=== PATIENT | female | born 1975 | race Two or more races ===

== ENCOUNTER 2017-03-09 15:57 | Inpatient (IN) | payer OTHER ==
[2017-03-09] MEDS ORDERED: Sodium Chloride 0.9% 10 ML Syringe FLUSH PRN (16:33)
[2017-03-09] MEDS: Dextrose 5%-Lactated Ringers 1,000 ML IV SCH (16:33)
[2017-03-09] MEDS: Pantoprazole 40 MG Vial IVPUSH SCH (16:33)
--- NOTE | 2017-03-09 17:17 | PCM.HP ---
H&P History of Present Illness - General Date of Service: 03/09/17 Admit Problem/Dx: Admission Diagnosis/Problem Admission Diagnosis/Problem Anemia Source of Information: Patient History Limitations: Reports: No Limitations - History of Present Illness Initial Comments - Free Text/Narative: 41-year-old female admitted because of anemia. She was seen by Dr. Samayoa in the clinic with a low hemoglobin and admitted for upper GI endoscopy. She complains of chest pain started about 2 weeks 2 days ago that is left sided, with radiation to the neck.It is associated dizziness and shortness of breath. Is now constant and worse when shegets up from laying down.She states that she can reproduce it when she presses her chest muscles. She has no fever or chills, and no previous cardiac history.She has no h/o anxiety,or recent surgeries. She did complains of melena stools, but no vaginal bleeding, hemoptysis or other bleeding tendencies. She is previously healthy with exception of chronic back pain for which she is on chronic opiate therapy. She does not smoke or drink Headache Pain Score (Numeric/FACES): 5 - Related Data Allergies/Adverse Reactions: Allergies Allergy/AdvReac Type Severity Reaction Status Date / Time ciprofloxacin Allergy Rash Verified 03/09/17 17:01 morphine Allergy Nausea and Verified 03/09/17 17:01 Vomiting Home Medications: Home Meds fentaNYL [Duragesic] 25 mcg TD Q3D 02/24/16 [History] Metaxalone [Skelaxin] 800 mg PO TID 03/09/17 [History] Pregabalin [Lyrica] 150 mg PO BEDTIME 03/09/17 [History] Ranitidine [Zantac] 75 mg PO BEDTIME PRN 03/09/17 [History] Past Medical History HEENT History: Reports: Other (See Below) Other HEENT History: Right ear deaf 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: Other (See Below) Other OB/BYN History: Lumps removed from Breasts; benign - Infectious Disease History Infectious Disease History: Reports: Chicken Pox - Past Surgical History GI Surgical History: Reports: Cholecystectomy Social & Family History - Family History Family Medical History: Noncontributory - Tobacco Use Smoking Status *Q: Never Smoker Second Hand Smoke Exposure: No - Caffeine Use Caffeine Use: Reports: Coffee, Soda - Alcohol Use Days Per Week of Alcohol Use: 0 - Recreational Drug Use Recreational Drug Use: No H&P Review of Systems - Review of Systems: Review Of Systems: ROS reveals no pertinent complaints other than HPI. Exam - Exam Exam: See Below - Vital Signs Vital Signs: Last Vital Signs Temp 98.3 F 03/09/17 15:57 Pulse 72 03/09/17 15:57 Resp 18 03/09/17 15:57 BP 101/54 L 03/09/17 15:57 Pulse Ox 99 03/09/17 15:57 - Exam General: Alert, Oriented, 4 HEENT: PERRLA, Hearing Intact, Mucosa Moist & [place], Nares Patent, Normal Nasal Septum, Posterior Pharynx Clear, Conjunctiva Clear, EOMI, EACs Clear, TMs Clear Neck: Supple, Trachea Midline, 2 Lungs: Clear to Auscultation, Normal Respiratory Effort Cardiovascular: Regular Rate, Regular Rhythm GI/Abdominal Exam: Normal Bowel Sounds, Soft, Non-Tender, No Organomegaly, No Distention, No Abnormal Bruit, No Mass, Pelvis Stable (Female) Exam: Deferred Rectal (Female) Exam: Deferred Back Exam: Normal Inspection, Full Range of Motion, NT Extremities: Normal Inspection, Normal Range of Motion, Non-Tender, No Pedal Edema, Normal Capillary Refill Skin: Warm, Dry, Intact Neurological: Cranial Nerves Intact, Reflexes Equal Bilateral Neuro Extensive - Mental Status: Alert, Oriented x3, Normal Mood/Affect, Normal Cognition Neuro Extensive - Motor, Sensory, Reflexes: CN II-XII Intact, Normal Gait, Normal Reflexes Psychiatric: Alert, Normal Affect, Normal Mood - Patient Data Result Diagrams: 03/10/17 06:30 03/09/17 17:30 EKG INTERPRETATION Rhythm: NSR *Q Meaningful Use (ADM) - VTE *Q VTE Criteria *Q: - Stroke *Q Stroke Criteria *Q: - AMI *Q AMI Criteria *Q: - Problem List (1) Anemia SNOMED Code(s): 515128372 ICD Code: D64.9 - ANEMIA, UNSPECIFIED Status: Acute Current Visit: Yes (2) Upper GI bleed SNOMED Code(s): 15184680 ICD Code: K92.2 - GASTROINTESTINAL HEMORRHAGE, UNSPECIFIED Status: Acute Current Visit: Yes (3) Chest pain SNOMED Code(s): 70499347 ICD Code: R07.9 - CHEST PAIN, UNSPECIFIED Status: Acute Current Visit: No (4) Hypotension SNOMED Code(s): 80220627 ICD Code: I95.9 - HYPOTENSION, UNSPECIFIED Status: Acute Current Visit: Yes (5) Chronic pain syndrome SNOMED Code(s): 007341717 ICD Code: G89.4 - CHRONIC PAIN SYNDROME Status: Acute Current Visit: Yes Problem List Initiated/Reviewed/Updated: Yes Orders Last 24hrs: Active Orders 24 hr Category Date Time Status Patient Status [ADT] Routine ADT 03/09/17 16:07 Active Antiembolic Devices [RC] .Routine Care 03/09/17 16:12 Active Bedrest Bedside Commode [RC] ASDIRECTED Care 03/09/17 16:07 Active EKG Documentation Completion [RC] ASDIRECTED Care 03/09/17 17:14 Ordered Pulse Oximetry [RC] PRN Care 03/09/17 16:07 Active VTE/DVT Education [RC] Click to Edit Care 03/09/17 16:12 Active Vital Signs [RC] Q4H Care 03/09/17 16:07 Active Clear Liquid Diet [DIET] Diet 03/09/17 Dinner Active Nothing per Oral After Midnight Diet [DIET] Diet 03/09/17 Dinner Active Chest 1V Frontal [CR] Stat Exams 03/09/17 17:14 Ordered CBC WITH AUTO DIFF [HEME] Stat Lab 03/09/17 17:15 Ordered COMPREHENSIVE METABOLIC PN,CMP [CHEM] Routine Lab 03/09/17 17:15 Ordered D Dimer [D-DIMER QUANTITATIVE] [COAG] Routine Lab 03/09/17 17:14 Ordered HEMOGLOBIN [HEME] 0600 Lab 03/10/17 06:00 Ordered INR,PT,PROTHROMBIN TIME [COAG] Routine Lab 03/09/17 17:15 Ordered TROPONIN I [CHEM] Stat Lab 03/09/17 17:14 Ordered TYPE AND SCREEN [BBK] Routine Lab 03/09/17 17:16 Ordered Dextrose 5%-Lactated Ringers 1,000 ml Med 03/09/17 16:15 Active IV ASDIRECTED Pantoprazole [ProTONIX IV] Med 03/09/17 16:15 Active 40 mg IVPUSH Q12H Sodium Chloride 0.9% [Saline Flush] Med 03/09/17 16:33 Active 10 ml FLUSH ASDIRECTED PRN DVT/VTE Prophylaxis Reflex [OM.PC] Per Unit Routine Oth 03/09/17 16:07 Ordered Saline Lock Insert [OM.PC] Routine Oth 03/09/17 16:33 Ordered EKG 12 Lead [EK] Routine Ther 03/09/17 17:14 Ordered Medication Orders Dextrose/Lactated Ringer's (Dextrose 5%-Lactated Ringers) 1,000 mls @ 125 mls/ hr IV ASDIRECTED [facility] Last Admin: 03/09/17 16:33 Dose: 125 mls/hr Pantoprazole Sodium (Protonix Iv) 40 mg IVPUSH Q12H [facility] Last Admin: 03/09/17 16:33 Dose: 40 mg Sodium Chloride (Saline Flush) 10 ml FLUSH ASDIRECTED PRN PRN Reason: Keep Vein Open Assessment/Plan Comment:: This also chest pain is unclear, but differential diagnosis includes costochondritis, PE, particularly syndrome, and fibromyalgia. I called and spoke with cardiology at [facility], they recommended repeating cardiac enzymes and EKG serially. She has no previous history, or high risk factors for chronic disease. She will probably need a stress test at some point. I'll order for a repeat CBC, type and screen, and a basic metabolic panel. Also obtain a d- dimer. I'll do a bolus of normal saline given her low blood pressure, and continue with replacement maintenance fluids overnight. She is nothing by mouth past midnight for the upper GI tomorrow morning.
[2017-03-09] MEDS: Sodium Chloride 0.9% 1,000 ML IV SCH (17:25)
[2017-03-09] MEDS: Pregabalin 75 MG Cap PO SCH (20:46)
[2017-03-09] MEDS ORDERED: Famotidine 10 MG Tab PO PRN (21:00)
[2017-03-09] MEDS: Acetaminophen 325 MG Tab PO PRN (21:29)
[2017-03-10] MEDS: Dextrose 5%-Lactated Ringers 1,000 ML IV SCH ×3 (01:15→16:42)
[2017-03-10] MEDS: Sodium Chloride 0.9% 1,000 ML IV SCH (04:19)
[2017-03-10] MEDS: Pantoprazole 40 MG Vial IVPUSH SCH ×2 (04:35→15:17)
[2017-03-10] MEDS ORDERED: Sodium Chloride 0.9% 250 ML IV SCH (07:30)
[2017-03-10] MEDS ORDERED: Sodium Chloride 0.9% 500 ML IV ONE ×2 (08:50→09:25)
[2017-03-10] MEDS ORDERED: fentaNYL 25 MCG/HR Transdermal Patch TRDERM SCH (09:00)
--- NOTE | 2017-03-10 09:22 | PCM.PN ---
- General Info Date of Service: 03/10/17 Subjective Update: Overnight patient had low blood pressure, mostly in the 80s. Hemoglobin this morning was found to be 7.4. On-call physician started 2 units of PRBCs. She complains of chest tightness but denies any malcolm pain. She also compresses of dizziness, and a mild to moderate headache. All signs of anemia. She's had bright red blood per rectum times which introduced hemorrhoids. Stools are black. - Patient Data Vitals - Most Recent: Last Vital Signs Temp 98.5 F 03/10/17 09:05 Pulse 80 03/10/17 09:05 Resp 20 03/10/17 09:05 BP 84/48 L 03/10/17 09:05 Pulse Ox 100 03/10/17 09:05 Weight - Most Recent: 72.665 kg I&O - Last 24 Hours: Intake & Output 03/09/17 03/10/17 03/10/17 22:59 06:59 14:59 Intake Total 1544 1636 389 Output Total 750 Balance 1544 886 389 Lab Results Last 24 Hours: Laboratory Results - last 24 hr 03/09/17 03/09/17 03/09/17 Range/Units 17:30 17:30 17:30 WBC (4.5-12.0) X10-3/uL RBC (3.23-5.20) x10(6)uL Hgb (11.5-15.5) g/dL Hct (30.0-51.3) % MCV (80-96) fL MCH (27.7-33.6) pg MCHC (32.2-35.4) g/dL RDW (11.5-15.5) % Plt Count (125-369) X10(3)uL MPV (7.4-10.4) fL Neut % (Auto) (46-82) % Lymph % (Auto) (13-37) % [place] % (Auto) (4-12) % Eos % (Auto) (1.0-5.0) % Baso % (Auto) (0-2) % Neut # (Auto) (1.6-8.3) # Lymph # (Auto) (0.6-5.0) # [place] # (Auto) (0.0-1.3) # Eos # (Auto) (0.0-0.8) # Baso # (Auto) (0.0-0.2) # PT 10.9 (8.7-11.1) INR 1.08 (0.89-1.13) D-Dimer, Quantitative 117 (100-400) ng/mL Sodium (135-145) mmol/L Potassium (3.5-5.3) mmol/L Chloride (100-110) mmol/L Carbon Dioxide (23-29) mmol/L BUN (5-20) mg/dL Creatinine (0.6-1.3) mg/dL Est Cr Clr Drug Dosing mL/min Estimated GFR (MDRD) (>60) BUN/Creatinine Ratio (9-20) Glucose (80-116) mg/dL Calcium (8.6-10.2) mg/dL Total Bilirubin (0.1-1.3) mg/dL AST (5-27) IU/L ALT (14-26) IU/L Alkaline Phosphatase (56-112) IU/L Creatine Kinase (60-160) IU/L CK-MB (CK-2) (0.2-5.0) ng/mL Troponin I < 0.01 L (0.02-0.06) NG/ML Total Protein (6.0-8.0) g/dL Albumin (3.5-5.2) g/dL Globulin g/dL Albumin/Globulin Ratio Blood Type Gel Antibody Screen Crossmatch 03/09/17 03/09/17 03/09/17 Range/Units 17:30 17:30 17:30 WBC 10.9 (4.5-12.0) X10-3/uL RBC 3.14 L (3.23-5.20) x10(6)uL Hgb 9.0 L D (11.5-15.5) g/dL Hct 26.3 L D (30.0-51.3) % MCV 83.7 (80-96) fL MCH 28.5 (27.7-33.6) pg MCHC 34.1 (32.2-35.4) g/dL RDW 12.9 (11.5-15.5) % Plt Count 294 (125-369) X10(3)uL MPV 8.9 (7.4-10.4) fL Neut % (Auto) 68.9 (46-82) % Lymph % (Auto) 24.3 (13-37) % [place] % (Auto) 5.4 (4-12) % Eos % (Auto) 1 (1.0-5.0) % Baso % (Auto) 0 (0-2) % Neut # (Auto) 7.6 (1.6-8.3) # Lymph # (Auto) 2.6 (0.6-5.0) # [place] # (Auto) 0.6 (0.0-1.3) # Eos # (Auto) 0.1 (0.0-0.8) # Baso # (Auto) 0.0 (0.0-0.2) # PT (8.7-11.1) INR (0.89-1.13) D-Dimer, Quantitative (100-400) ng/mL Sodium 132 L (135-145) mmol/L Potassium 3.6 (3.5-5.3) mmol/L Chloride 106 (100-110) mmol/L Carbon Dioxide 22 L (23-29) mmol/L BUN 9 (5-20) mg/dL Creatinine 0.6 (0.6-1.3) mg/dL Est Cr Clr Drug Dosing 102.07 mL/min Estimated GFR (MDRD) > 60 (>60) BUN/Creatinine Ratio 15.0 (9-20) Glucose 99 (80-116) mg/dL Calcium 8.2 L (8.6-10.2) mg/dL Total Bilirubin 0.1 (0.1-1.3) mg/dL AST 14 D (5-27) IU/L ALT 9 L D (14-26) IU/L Alkaline Phosphatase 37 L (56-112) IU/L Creatine Kinase (60-160) IU/L CK-MB (CK-2) (0.2-5.0) ng/mL Troponin I (0.02-0.06) NG/ML Total Protein 6.5 (6.0-8.0) g/dL Albumin 3.7 (3.5-5.2) g/dL Globulin 2.8 g/dL Albumin/Globulin Ratio 1.3 Blood Type O POSITIVE Gel Antibody Screen Negative Crossmatch See Detail 03/09/17 03/10/17 Range/Units 17:30 06:30 WBC (4.5-12.0) X10-3/uL RBC (3.23-5.20) x10(6)uL Hgb 7.4 L (11.5-15.5) g/dL Hct (30.0-51.3) % MCV (80-96) fL MCH (27.7-33.6) pg MCHC (32.2-35.4) g/dL RDW (11.5-15.5) % Plt Count (125-369) X10(3)uL MPV (7.4-10.4) fL Neut % (Auto) (46-82) % Lymph % (Auto) (13-37) % [place] % (Auto) (4-12) % Eos % (Auto) (1.0-5.0) % Baso % (Auto) (0-2) % Neut # (Auto) (1.6-8.3) # Lymph # (Auto) (0.6-5.0) # [place] # (Auto) (0.0-1.3) # Eos # (Auto) (0.0-0.8) # Baso # (Auto) (0.0-0.2) # PT (8.7-11.1) INR (0.89-1.13) D-Dimer, Quantitative (100-400) ng/mL Sodium (135-145) mmol/L Potassium (3.5-5.3) mmol/L Chloride (100-110) mmol/L Carbon Dioxide (23-29) mmol/L BUN (5-20) mg/dL Creatinine (0.6-1.3) mg/dL Est Cr Clr Drug Dosing mL/min Estimated GFR (MDRD) (>60) BUN/Creatinine Ratio (9-20) Glucose (80-116) mg/dL Calcium (8.6-10.2) mg/dL Total Bilirubin (0.1-1.3) mg/dL AST (5-27) IU/L ALT (14-26) IU/L Alkaline Phosphatase (56-112) IU/L Creatine Kinase 62 (60-160) IU/L CK-MB (CK-2) 0.4 (0.2-5.0) ng/mL Troponin I (0.02-0.06) NG/ML Total Protein (6.0-8.0) g/dL Albumin (3.5-5.2) g/dL Globulin g/dL Albumin/Globulin Ratio Blood Type Gel Antibody Screen Crossmatch Med Orders - Current: Current Medications Acetaminophen (Tylenol) 650 mg PO Q4H PRN PRN Reason: Headache/Pain Last Admin: 03/09/17 21:29 Dose: 650 mg Famotidine (Pepcid) 10 mg PO BEDTIME PRN PRN Reason: HEARTBURN Fentanyl (Duragesic) 25 mcg TRDERM Q3D [facility] Last Admin: 03/10/17 08:11 Dose: 25 mcg Dextrose/Lactated Ringer's (Dextrose 5%-Lactated Ringers) 1,000 mls @ 125 mls/ hr IV ASDIRECTED [facility] Last Admin: 03/10/17 06:22 Dose: 125 mls/hr Sodium Chloride (Normal Saline) 1,000 mls @ 500 mls/hr IV ASDIRECTED [facility] Last Admin: 03/10/17 04:19 Dose: 999 mls/hr Sodium Chloride (Normal Saline) 250 mls @ 100 mls/hr IV ASDIRECTED [facility] Sodium Chloride (Normal Saline) 500 mls @ 125 mls/hr IV ONETIME ONE Stop: 03/10/17 12:49 Metaxalone (Skelaxin) 800 mg PO TID [facility] Last Admin: 03/10/17 08:12 Dose: Not Given Pantoprazole Sodium (Protonix Iv) 40 mg IVPUSH Q12H [facility] Last Admin: 03/10/17 04:35 Dose: 40 mg Pregabalin (Lyrica) 150 mg PO BEDTIME [facility] Last Admin: 03/09/17 20:46 Dose: 150 mg Sodium Chloride (Saline Flush) 10 ml FLUSH ASDIRECTED PRN PRN Reason: Keep Vein Open - Exam Quality Assessment: No: Supplemental Oxygen General: Alert, Oriented HEENT: Pupils Equal, Pupils Reactive, EOMI, Mucous Membr. Moist/[place] Neck: Supple Lungs: Clear to Auscultation, Normal Respiratory Effort Cardiovascular: Regular Rate, Regular Rhythm - Problem List & Annotations (1) Anemia SNOMED Code(s): 756137929 Code(s): D64.9 - ANEMIA, UNSPECIFIED Status: Acute Current Visit: Yes (2) Upper GI bleed SNOMED Code(s): 33715992 Code(s): K92.2 - GASTROINTESTINAL HEMORRHAGE, UNSPECIFIED Status: Acute Current Visit: Yes (3) Chest pain SNOMED Code(s): 01837786 Code(s): R07.9 - CHEST PAIN, UNSPECIFIED Status: Acute Current Visit: No (4) Hypotension SNOMED Code(s): 18288035 Code(s): I95.9 - HYPOTENSION, UNSPECIFIED Status: Acute Current Visit: Yes (5) Chronic pain syndrome SNOMED Code(s): 672483650 Code(s): G89.4 - CHRONIC PAIN SYNDROME Status: Acute Current Visit: Yes - Problem List Review Problem List Initiated/Reviewed/Updated: Yes - My Orders Last 24 Hours: My Active Orders 03/09/17 16:07 Patient Status [ADT] Routine Bedrest Bedside Commode [RC] ASDIRECTED Pulse Oximetry [RC] PRN Vital Signs [RC] Q4H DVT/VTE Prophylaxis Reflex [OM.PC] Per Unit Routine 03/09/17 16:12 Antiembolic Devices [RC] 08,16,00 03/09/17 16:15 Dextrose 5%-Lactated Ringers 1,000 ml IV ASDIRECTED Pantoprazole [ProTONIX IV] 40 mg IVPUSH Q12H 03/09/17 16:33 Sodium Chloride 0.9% [Saline Flush] 10 ml FLUSH ASDIRECTED PRN Saline Lock Insert [OM.PC] Routine 03/09/17 17:14 Chest 1V Frontal [CR] Stat EKG 12 Lead [EK] Routine 03/09/17 17:30 TYPE AND SCREEN [BBK] Routine 03/09/17 17:45 Sodium Chloride 0.9% [Normal Saline] 1,000 ml IV ASDIRECTED 03/09/17 21:00 Famotidine [Pepcid] 10 mg PO BEDTIME PRN Metaxalone [Skelaxin] 800 mg PO TID Pregabalin [Lyrica] 150 mg PO BEDTIME 03/09/17 21:19 Acetaminophen [Tylenol] 650 mg PO Q4H PRN 03/09/17 Dinner Clear Liquid Diet [DIET] Nothing per Oral After Midnight Diet [DIET] 03/10/17 08:50 Sodium Chloride 0.9% [Normal Saline] 500 ml IV ONETIME 03/10/17 09:00 fentaNYL [Duragesic] 25 mcg TRDERM Q3D 03/10/17 09:06 TROPONIN I [CHEM] Stat - Plan Plan:: I agree with 2 units of PRBCs. And Protonix. Her persistent hypotension and low hemoglobin could possibly be an active bleed, and she will need intervention. I spoke with Dr. Brooks ,who is planning for an EGD, from a cardiac standpoint she is low risk for dali-operative cardiac mobility, given her risk factors, age and lack of prior cardiopulmonary disease.Her cardiac enzymes also have been negative.
[2017-03-10] MEDS ORDERED: Midazolam 1 MG/ML 2 ML SDV IV ONE (09:55)
[2017-03-10] MEDS ORDERED: Ketamine 500 mg/10 ML MDV IV ONE (09:55)
[2017-03-10] MEDS ORDERED: Propofol 200 MG/20 ML SDV IV ONE (09:55)
[2017-03-10] MEDS ORDERED: Lidocaine 2% 100 MG/5 ML Syringe IVPUSH ONE (09:55)
--- NOTE | 2017-03-10 10:00 | PCM.PN ---
- General Info Date of Service: 03/10/17 - Review of Systems General: Reports: Weakness (improved with less dizzyness), Other (Feels better after blood transfusion started) Pulmonary: Reports: No Symptoms Cardiovascular: Denies: Chest Pain Gastrointestinal: Reports: Other (some gassiness but no stool during the night) . Denies: Abdominal Pain - Patient Data Vitals - Most Recent: Last Vital Signs Temp 98.1 F 03/10/17 09:45 Pulse 89 03/10/17 09:45 Resp 16 03/10/17 09:45 BP 90/45 L 03/10/17 09:45 Pulse Ox 100 03/10/17 09:45 Weight - Most Recent: 160 lb 3.2 oz I&O - Last 24 Hours: Intake & Output 03/09/17 03/10/17 03/10/17 22:59 06:59 14:59 Intake Total 1544 1636 389 Output Total 750 Balance 1544 886 389 Lab Results Last 24 Hours: Laboratory Results - last 24 hr 03/09/17 03/09/17 03/09/17 Range/Units 17:30 17:30 17:30 WBC (4.5-12.0) X10-3/uL RBC (3.23-5.20) x10(6)uL Hgb (11.5-15.5) g/dL Hct (30.0-51.3) % MCV (80-96) fL MCH (27.7-33.6) pg MCHC (32.2-35.4) g/dL RDW (11.5-15.5) % Plt Count (125-369) X10(3)uL MPV (7.4-10.4) fL Neut % (Auto) (46-82) % Lymph % (Auto) (13-37) % [place] % (Auto) (4-12) % Eos % (Auto) (1.0-5.0) % Baso % (Auto) (0-2) % Neut # (Auto) (1.6-8.3) # Lymph # (Auto) (0.6-5.0) # [place] # (Auto) (0.0-1.3) # Eos # (Auto) (0.0-0.8) # Baso # (Auto) (0.0-0.2) # PT 10.9 (8.7-11.1) INR 1.08 (0.89-1.13) D-Dimer, Quantitative 117 (100-400) ng/mL Sodium (135-145) mmol/L Potassium (3.5-5.3) mmol/L Chloride (100-110) mmol/L Carbon Dioxide (23-29) mmol/L BUN (5-20) mg/dL Creatinine (0.6-1.3) mg/dL Est Cr Clr Drug Dosing mL/min Estimated GFR (MDRD) (>60) BUN/Creatinine Ratio (9-20) Glucose (80-116) mg/dL Calcium (8.6-10.2) mg/dL Total Bilirubin (0.1-1.3) mg/dL AST (5-27) IU/L ALT (14-26) IU/L Alkaline Phosphatase (56-112) IU/L Creatine Kinase (60-160) IU/L CK-MB (CK-2) (0.2-5.0) ng/mL Troponin I < 0.01 L (0.02-0.06) NG/ML Total Protein (6.0-8.0) g/dL Albumin (3.5-5.2) g/dL Globulin g/dL Albumin/Globulin Ratio Blood Type Gel Antibody Screen Crossmatch 03/09/17 03/09/17 03/09/17 Range/Units 17:30 17:30 17:30 WBC 10.9 (4.5-12.0) X10-3/uL RBC 3.14 L (3.23-5.20) x10(6)uL Hgb 9.0 L D (11.5-15.5) g/dL Hct 26.3 L D (30.0-51.3) % MCV 83.7 (80-96) fL MCH 28.5 (27.7-33.6) pg MCHC 34.1 (32.2-35.4) g/dL RDW 12.9 (11.5-15.5) % Plt Count 294 (125-369) X10(3)uL MPV 8.9 (7.4-10.4) fL Neut % (Auto) 68.9 (46-82) % Lymph % (Auto) 24.3 (13-37) % [place] % (Auto) 5.4 (4-12) % Eos % (Auto) 1 (1.0-5.0) % Baso % (Auto) 0 (0-2) % Neut # (Auto) 7.6 (1.6-8.3) # Lymph # (Auto) 2.6 (0.6-5.0) # [place] # (Auto) 0.6 (0.0-1.3) # Eos # (Auto) 0.1 (0.0-0.8) # Baso # (Auto) 0.0 (0.0-0.2) # PT (8.7-11.1) INR (0.89-1.13) D-Dimer, Quantitative (100-400) ng/mL Sodium 132 L (135-145) mmol/L Potassium 3.6 (3.5-5.3) mmol/L Chloride 106 (100-110) mmol/L Carbon Dioxide 22 L (23-29) mmol/L BUN 9 (5-20) mg/dL Creatinine 0.6 (0.6-1.3) mg/dL Est Cr Clr Drug Dosing 102.07 mL/min Estimated GFR (MDRD) > 60 (>60) BUN/Creatinine Ratio 15.0 (9-20) Glucose 99 (80-116) mg/dL Calcium 8.2 L (8.6-10.2) mg/dL Total Bilirubin 0.1 (0.1-1.3) mg/dL AST 14 D (5-27) IU/L ALT 9 L D (14-26) IU/L Alkaline Phosphatase 37 L (56-112) IU/L Creatine Kinase (60-160) IU/L CK-MB (CK-2) (0.2-5.0) ng/mL Troponin I (0.02-0.06) NG/ML Total Protein 6.5 (6.0-8.0) g/dL Albumin 3.7 (3.5-5.2) g/dL Globulin 2.8 g/dL Albumin/Globulin Ratio 1.3 Blood Type O POSITIVE Gel Antibody Screen Negative Crossmatch See Detail 03/09/17 03/10/17 Range/Units 17:30 06:30 WBC (4.5-12.0) X10-3/uL RBC (3.23-5.20) x10(6)uL Hgb 7.4 L (11.5-15.5) g/dL Hct (30.0-51.3) % MCV (80-96) fL MCH (27.7-33.6) pg MCHC (32.2-35.4) g/dL RDW (11.5-15.5) % Plt Count (125-369) X10(3)uL MPV (7.4-10.4) fL Neut % (Auto) (46-82) % Lymph % (Auto) (13-37) % [place] % (Auto) (4-12) % Eos % (Auto) (1.0-5.0) % Baso % (Auto) (0-2) % Neut # (Auto) (1.6-8.3) # Lymph # (Auto) (0.6-5.0) # [place] # (Auto) (0.0-1.3) # Eos # (Auto) (0.0-0.8) # Baso # (Auto) (0.0-0.2) # PT (8.7-11.1) INR (0.89-1.13) D-Dimer, Quantitative (100-400) ng/mL Sodium (135-145) mmol/L Potassium (3.5-5.3) mmol/L Chloride (100-110) mmol/L Carbon Dioxide (23-29) mmol/L BUN (5-20) mg/dL Creatinine (0.6-1.3) mg/dL Est Cr Clr Drug Dosing mL/min Estimated GFR (MDRD) (>60) BUN/Creatinine Ratio (9-20) Glucose (80-116) mg/dL Calcium (8.6-10.2) mg/dL Total Bilirubin (0.1-1.3) mg/dL AST (5-27) IU/L ALT (14-26) IU/L Alkaline Phosphatase (56-112) IU/L Creatine Kinase 62 (60-160) IU/L CK-MB (CK-2) 0.4 (0.2-5.0) ng/mL Troponin I (0.02-0.06) NG/ML Total Protein (6.0-8.0) g/dL Albumin (3.5-5.2) g/dL Globulin g/dL Albumin/Globulin Ratio Blood Type Gel Antibody Screen Crossmatch Med Orders - Current: Current Medications Acetaminophen (Tylenol) 650 mg PO Q4H PRN PRN Reason: Headache/Pain Last Admin: 03/09/17 21:29 Dose: 650 mg Famotidine (Pepcid) 10 mg PO BEDTIME PRN PRN Reason: HEARTBURN Fentanyl (Duragesic) 25 mcg TRDERM Q3D [facility] Last Admin: 03/10/17 08:11 Dose: 25 mcg Dextrose/Lactated Ringer's (Dextrose 5%-Lactated Ringers) 1,000 mls @ 125 mls/ hr IV ASDIRECTED [facility] Last Admin: 03/10/17 06:22 Dose: 125 mls/hr Sodium Chloride (Normal Saline) 1,000 mls @ 500 mls/hr IV ASDIRECTED [facility] Last Admin: 03/10/17 04:19 Dose: 999 mls/hr Sodium Chloride (Normal Saline) 250 mls @ 100 mls/hr IV ASDIRECTED [facility] Sodium Chloride (Normal Saline) 500 mls @ 125 mls/hr IV ONETIME ONE Stop: 03/10/17 12:49 Last Admin: 03/10/17 08:50 Dose: 125 mls/hr Sodium Chloride (Normal Saline) 500 mls @ 125 mls/hr IV ONETIME ONE Stop: 03/10/17 13:24 Metaxalone (Skelaxin) 800 mg PO TID [facility] Last Admin: 03/10/17 08:12 Dose: Not Given Pantoprazole Sodium (Protonix Iv) 40 mg IVPUSH Q12H [facility] Last Admin: 03/10/17 04:35 Dose: 40 mg Pregabalin (Lyrica) 150 mg PO BEDTIME [facility] Last Admin: 03/09/17 20:46 Dose: 150 mg Sodium Chloride (Saline Flush) 10 ml FLUSH ASDIRECTED PRN PRN Reason: Keep Vein Open - Exam General: Alert, Oriented Cardiovascular: Regular Rhythm GI/Abdominal Exam: Soft - Problem List Review Problem List Initiated/Reviewed/Updated: Yes - Assessment Assessment:: GI bleed with acute anemia Cardiac w/u indicates no acute cardiac damage Symptoms felt to have been caused by acute blood loss Condition stabilizing - Plan Plan:: Recieving 2 units PRBC's Cardiac evaluation noted and appreciated EGD this AM This has been discussed with the patient. She agrees to proceed accepting risks.
--- NOTE | 2017-03-10 10:30 | PCM.OPNOTE ---
- General Post-Op/Procedure Note Date of Surgery/Procedure: 03/10/17 Operative Procedure(s): EGD with Biopsy Findings: Raised Gastic Mucosal Lesion - Ulcer lower gastric body - no active bleeding Pre Op Diagnosis: GI bleed with anemia Post-Op Diagnosis: Gastric Ulcer Anesthesia Technique: MAC Primary Surgeon: Fred Brooks Pathology: Biopsies of Gastric Antrum Output, Urine Amount: 0 EBL in mLs: 2 Complications: None Condition: Good Free Text/Narrative:: Intake & Output 03/09/17 03/10/17 03/10/17 22:59 06:59 14:59 Intake Total 1544 1636 389 Output Total 750 Balance 1544 886 389
--- NOTE | 2017-03-10 12:21 | OR ---
DATE OF OPERATION: 03/10/2017 SURGEON: Fred Brooks MD REFERRING PROVIDER: Gee Pierson PA-C PREOPERATIVE DIAGNOSIS: Acute upper gastrointestinal bleed with anemia. POSTOPERATIVE DIAGNOSIS: Gastric ulcer. OPERATION PERFORMED: Esophagogastroduodenoscopy with biopsy. INDICATIONS FOR SURGERY: This 41-year-old female was admitted with significant anemia, felt to be most likely secondary to an upper GI bleed. Diagnostic upper endoscopy is planned. FINDINGS: No active bleeding or blood is seen in the esophagus, stomach, or duodenum. The patient does have an isolated lesion on the posterior mucosal surface of the stomach in the lower gastric body. This was a raised ulcerative lesion approximately 7-8 mm in size. There is no active bleeding noted at this time, although this is felt to be a likely source for her recent bleeding. The remainder of the upper endoscopy was normal. PROCEDURE IN DETAIL: The patient was taken to the procedure room. She was given intravenous sedation and with her in the left lateral decubitus position, the esophagus was intubated under direct visualization. The scope was then carefully advanced through the esophagus, stomach, and into the duodenum where examination to the 3rd portion was performed. After carefully examining the duodenum and finding no evidence of any bleeding or ulcer, full examination of the stomach including retroflexed examination of the fundus was performed. The only abnormality was the above-described lesion. Because of the significant amount of bleeding, biopsy of the lesion itself was not taken to limit chance of recurrence of bleeding, but biopsies of the gastric antrum were taken to rule out H. pylori. After fully examining the stomach, the esophagus was then examined as the scope was withdrawn. The scope was removed and the patient was taken from the procedure room in satisfactory condition. ESTIMATED BLOOD LOSS: 2 mL. COMPLICATIONS: None. PROGNOSIS: Good. /[id number] ANGELA/FADUMO
[2017-03-10] MEDS: Acetaminophen 325 MG Tab PO PRN (13:14)
[2017-03-10] MEDS: Pregabalin 75 MG Cap PO SCH (20:53)
[2017-03-11] MEDS: Dextrose 5%-Lactated Ringers 1,000 ML IV SCH (00:47)
[2017-03-11] MEDS: Pantoprazole 40 MG Vial IVPUSH SCH (04:20)
[2017-03-11] MEDS: Acetaminophen 325 MG Tab PO PRN (06:04)
--- NOTE | 2017-03-11 08:03 | PCM.PN ---
- General Info Date of Service: 03/11/17 Admission Dx/Problem (Free Text): Patient states she had a headache this morning and was given Tylenol and that helped. She had a little abdominal pain after she ate last night but much better. She has little BM but is still dark. No nausea or vomiting. No fevers or chills. - Patient Data Vitals - Most Recent: Last Vital Signs Temp 98.3 F 03/11/17 04:00 Pulse 70 03/11/17 04:00 Resp 16 03/11/17 04:00 BP 90/47 L 03/11/17 04:00 Pulse Ox 99 03/11/17 04:00 Weight - Most Recent: 160 lb 3.2 oz I&O - Last 24 Hours: Intake & Output 03/10/17 03/11/17 03/11/17 22:59 06:59 14:59 Intake Total 1212 1186 Output Total 1300 600 Balance -88 586 Lab Results Last 24 Hours: Laboratory Results - last 24 hr 03/09/17 03/10/17 03/10/17 Range/Units 17:30 06:30 16:00 WBC (4.5-12.0) X10-3/uL RBC (3.23-5.20) x10(6)uL Hgb 10.2 L (11.5-15.5) g/dL Hct (30.0-51.3) % MCV (80-96) fL MCH (27.7-33.6) pg MCHC (32.2-35.4) g/dL RDW (11.5-15.5) % Plt Count (125-369) X10(3)uL MPV (7.4-10.4) fL Neut % (Auto) (46-82) % Lymph % (Auto) (13-37) % [place] % (Auto) (4-12) % Eos % (Auto) (1.0-5.0) % Baso % (Auto) (0-2) % Neut # (Auto) (1.6-8.3) # Lymph # (Auto) (0.6-5.0) # [place] # (Auto) (0.0-1.3) # Eos # (Auto) (0.0-0.8) # Baso # (Auto) (0.0-0.2) # Sodium (135-145) mmol/L Potassium (3.5-5.3) mmol/L Chloride (100-110) mmol/L Carbon Dioxide (23-29) mmol/L BUN (5-20) mg/dL Creatinine (0.6-1.3) mg/dL Est Cr Clr Drug Dosing mL/min Estimated GFR (MDRD) (>60) BUN/Creatinine Ratio (9-20) Glucose (80-116) mg/dL Calcium (8.6-10.2) mg/dL Troponin I < 0.01 L (0.02-0.06) NG/ML Blood Type O POSITIVE Gel Antibody Screen Negative Crossmatch See Detail 03/11/17 03/11/17 Range/Units 06:00 06:00 WBC 8.2 (4.5-12.0) X10-3/uL RBC 3.25 (3.23-5.20) x10(6)uL Hgb 9.4 L (11.5-15.5) g/dL Hct 27.0 L (30.0-51.3) % MCV 83.1 (80-96) fL MCH 28.9 (27.7-33.6) pg MCHC 34.7 (32.2-35.4) g/dL RDW 13.5 (11.5-15.5) % Plt Count 234 (125-369) X10(3)uL MPV 8.2 (7.4-10.4) fL Neut % (Auto) 64.6 (46-82) % Lymph % (Auto) 25.6 (13-37) % [place] % (Auto) 6.4 (4-12) % Eos % (Auto) 3 (1.0-5.0) % Baso % (Auto) 1 (0-2) % Neut # (Auto) 5.3 (1.6-8.3) # Lymph # (Auto) 2.1 (0.6-5.0) # [place] # (Auto) 0.5 (0.0-1.3) # Eos # (Auto) 0.2 (0.0-0.8) # Baso # (Auto) 0.1 (0.0-0.2) # Sodium 136 (135-145) mmol/L Potassium 3.6 (3.5-5.3) mmol/L Chloride 109 (100-110) mmol/L Carbon Dioxide 22 L (23-29) mmol/L BUN 3 L (5-20) mg/dL Creatinine 0.6 (0.6-1.3) mg/dL Est Cr Clr Drug Dosing 102.07 mL/min Estimated GFR (MDRD) > 60 (>60) BUN/Creatinine Ratio 5.0 L (9-20) Glucose 103 (80-116) mg/dL Calcium 7.9 L (8.6-10.2) mg/dL Troponin I (0.02-0.06) NG/ML Blood Type Gel Antibody Screen Crossmatch Med Orders - Current: Current Medications Acetaminophen (Tylenol) 650 mg PO Q4H PRN PRN Reason: Headache/Pain Last Admin: 03/11/17 06:04 Dose: 650 mg Famotidine (Pepcid) 10 mg PO BEDTIME PRN PRN Reason: HEARTBURN Fentanyl (Duragesic) 25 mcg TRDERM Q3D [facility] Last Admin: 03/10/17 08:11 Dose: 25 mcg Dextrose/Lactated Ringer's (Dextrose 5%-Lactated Ringers) 1,000 mls @ 125 mls/ hr IV ASDIRECTED [facility] Last Admin: 03/11/17 00:47 Dose: 125 mls/hr Sodium Chloride (Normal Saline) 1,000 mls @ 500 mls/hr IV ASDIRECTED [facility] Last Admin: 03/10/17 04:19 Dose: 999 mls/hr Sodium Chloride (Normal Saline) 250 mls @ 100 mls/hr IV ASDIRECTED [facility] Metaxalone (Skelaxin) 800 mg PO TID [facility] Last Admin: 03/10/17 20:54 Dose: 800 mg Pantoprazole Sodium (Protonix Iv) 40 mg IVPUSH Q12H [facility] Last Admin: 03/11/17 04:20 Dose: 40 mg Pregabalin (Lyrica) 150 mg PO BEDTIME [facility] Last Admin: 03/10/17 20:53 Dose: 150 mg Sodium Chloride (Saline Flush) 10 ml FLUSH ASDIRECTED PRN PRN Reason: Keep Vein Open Last Admin: 03/10/17 15:19 Dose: 10 ml Discontinued Medications Sodium Chloride (Normal Saline) 500 mls @ 125 mls/hr IV ONETIME ONE Stop: 03/10/17 12:49 Last Admin: 03/10/17 08:50 Dose: 125 mls/hr Sodium Chloride (Normal Saline) 500 mls @ 125 mls/hr IV ONETIME ONE Stop: 03/10/17 13:24 Last Admin: 03/10/17 09:27 Dose: 125 mls/hr - Exam General: Alert, Oriented, Cooperative Lungs: Normal Respiratory Effort Cardiovascular: Regular Rate, Regular Rhythm GI/Abdominal Exam: Normal Bowel Sounds, Soft, No Distention, Tender (Mild epigastric). No: Guarding, Rigid, Rebound - Problem List & Annotations (1) Gastric ulcer SNOMED Code(s): 834913364 Code(s): K25.9 - GASTRIC ULCER, UNSP ACUTE OR CHRONIC, W/O HEMOR OR PERF Status: Acute Current Visit: Yes (2) Chest pain SNOMED Code(s): 22719523 Code(s): R07.9 - CHEST PAIN, UNSPECIFIED Status: Acute Current Visit: Yes (3) Acute hyponatremia SNOMED Code(s): 7124533 Code(s): E87.1 - HYPO-OSMOLALITY AND HYPONATREMIA Status: Acute Current Visit: Yes (4) Anemia SNOMED Code(s): 984412186 Code(s): D64.9 - ANEMIA, UNSPECIFIED Status: Acute Current Visit: Yes (5) Chronic pain syndrome SNOMED Code(s): 174587085 Code(s): G89.4 - CHRONIC PAIN SYNDROME Status: Acute Current Visit: Yes (6) Upper GI bleed SNOMED Code(s): 27391083 Code(s): K92.2 - GASTROINTESTINAL HEMORRHAGE, UNSPECIFIED Status: Acute Current Visit: Yes - Problem List Review Problem List Initiated/Reviewed/Updated: Yes - Plan Plan:: 1. DC IV fluids 2. Saline lock IV. 3. Discussed hemoglobin with Dr. Schuster. He states he will be in to see the patient and possibly discharge her today.
--- NOTE | 2017-03-11 08:37 | CR ---
INDICATION: Chest pain. CHEST: Portable AP upright view of the chest was obtained 03/09/2017 and compared with 05/28/2014, revealing the heart to remain normal in size and shape. An active infiltrate or effusion was not identified. Overlying EKG leads are noted. IMPRESSION: No acute process. MTDD
--- NOTE | 2017-03-11 09:06 | PCM.PN ---
- General Info Date of Service: 03/11/17 Admission Dx/Problem (Free Text): Patient states she had a headache this morning and was given Tylenol and that helped. She had a little abdominal pain after she ate last night but much better. She has little BM but is still dark. No nausea or vomiting. No fevers or chills. Functional Status: Reports: Other (Pain much better today then before - still mild pain in upper and mid abdomen but no more chest pain) - Review of Systems General: Reports: Weakness (but no dizzyness when ambulating) Pulmonary: Reports: No Symptoms Genitourinary: Reports: No Symptoms - Patient Data Vitals - Most Recent: Last Vital Signs Temp 98.3 F 03/11/17 04:00 Pulse 70 03/11/17 04:00 Resp 16 03/11/17 04:00 BP 90/47 L 03/11/17 04:00 Pulse Ox 99 03/11/17 04:00 Weight - Most Recent: 160 lb 3.2 oz I&O - Last 24 Hours: Intake & Output 03/10/17 03/11/17 03/11/17 22:59 06:59 14:59 Intake Total 1212 1186 312 Output Total 1300 600 Balance -88 586 312 Lab Results Last 24 Hours: Laboratory Results - last 24 hr 03/09/17 03/10/17 03/10/17 Range/Units 17:30 06:30 16:00 WBC (4.5-12.0) X10-3/uL RBC (3.23-5.20) x10(6)uL Hgb 10.2 L (11.5-15.5) g/dL Hct (30.0-51.3) % MCV (80-96) fL MCH (27.7-33.6) pg MCHC (32.2-35.4) g/dL RDW (11.5-15.5) % Plt Count (125-369) X10(3)uL MPV (7.4-10.4) fL Neut % (Auto) (46-82) % Lymph % (Auto) (13-37) % [place] % (Auto) (4-12) % Eos % (Auto) (1.0-5.0) % Baso % (Auto) (0-2) % Neut # (Auto) (1.6-8.3) # Lymph # (Auto) (0.6-5.0) # [place] # (Auto) (0.0-1.3) # Eos # (Auto) (0.0-0.8) # Baso # (Auto) (0.0-0.2) # Sodium (135-145) mmol/L Potassium (3.5-5.3) mmol/L Chloride (100-110) mmol/L Carbon Dioxide (23-29) mmol/L BUN (5-20) mg/dL Creatinine (0.6-1.3) mg/dL Est Cr Clr Drug Dosing mL/min Estimated GFR (MDRD) (>60) BUN/Creatinine Ratio (9-20) Glucose (80-116) mg/dL Calcium (8.6-10.2) mg/dL Troponin I < 0.01 L (0.02-0.06) NG/ML Blood Type O POSITIVE Gel Antibody Screen Negative Crossmatch See Detail 03/11/17 03/11/17 Range/Units 06:00 06:00 WBC 8.2 (4.5-12.0) X10-3/uL RBC 3.25 (3.23-5.20) x10(6)uL Hgb 9.4 L (11.5-15.5) g/dL Hct 27.0 L (30.0-51.3) % MCV 83.1 (80-96) fL MCH 28.9 (27.7-33.6) pg MCHC 34.7 (32.2-35.4) g/dL RDW 13.5 (11.5-15.5) % Plt Count 234 (125-369) X10(3)uL MPV 8.2 (7.4-10.4) fL Neut % (Auto) 64.6 (46-82) % Lymph % (Auto) 25.6 (13-37) % [place] % (Auto) 6.4 (4-12) % Eos % (Auto) 3 (1.0-5.0) % Baso % (Auto) 1 (0-2) % Neut # (Auto) 5.3 (1.6-8.3) # Lymph # (Auto) 2.1 (0.6-5.0) # [place] # (Auto) 0.5 (0.0-1.3) # Eos # (Auto) 0.2 (0.0-0.8) # Baso # (Auto) 0.1 (0.0-0.2) # Sodium 136 (135-145) mmol/L Potassium 3.6 (3.5-5.3) mmol/L Chloride 109 (100-110) mmol/L Carbon Dioxide 22 L (23-29) mmol/L BUN 3 L (5-20) mg/dL Creatinine 0.6 (0.6-1.3) mg/dL Est Cr Clr Drug Dosing 102.07 mL/min Estimated GFR (MDRD) > 60 (>60) BUN/Creatinine Ratio 5.0 L (9-20) Glucose 103 (80-116) mg/dL Calcium 7.9 L (8.6-10.2) mg/dL Troponin I (0.02-0.06) NG/ML Blood Type Gel Antibody Screen Crossmatch Med Orders - Current: Current Medications Acetaminophen (Tylenol) 650 mg PO Q4H PRN PRN Reason: Headache/Pain Last Admin: 03/11/17 06:04 Dose: 650 mg Famotidine (Pepcid) 10 mg PO BEDTIME PRN PRN Reason: HEARTBURN Fentanyl (Duragesic) 25 mcg TRDERM Q3D [facility] Last Admin: 03/10/17 08:11 Dose: 25 mcg Dextrose/Lactated Ringer's (Dextrose 5%-Lactated Ringers) 1,000 mls @ 125 mls/ hr IV ASDIRECTED [facility] Last Admin: 03/11/17 00:47 Dose: 125 mls/hr Metaxalone (Skelaxin) 800 mg PO TID [facility] Last Admin: 03/11/17 08:34 Dose: Not Given Pantoprazole Sodium (Protonix Iv) 40 mg IVPUSH Q12H [facility] Last Admin: 03/11/17 04:20 Dose: 40 mg Pregabalin (Lyrica) 150 mg PO BEDTIME [facility] Last Admin: 03/10/17 20:53 Dose: 150 mg Sodium Chloride (Saline Flush) 10 ml FLUSH ASDIRECTED PRN PRN Reason: Keep Vein Open Last Admin: 03/10/17 15:19 Dose: 10 ml Discontinued Medications Sodium Chloride (Normal Saline) 1,000 mls @ 500 mls/hr IV ASDIRECTED [facility] Last Admin: 03/10/17 04:19 Dose: 999 mls/hr Sodium Chloride (Normal Saline) 250 mls @ 100 mls/hr IV ASDIRECTED [facility] Sodium Chloride (Normal Saline) 500 mls @ 125 mls/hr IV ONETIME ONE Stop: 03/10/17 12:49 Last Admin: 03/10/17 08:50 Dose: 125 mls/hr Sodium Chloride (Normal Saline) 500 mls @ 125 mls/hr IV ONETIME ONE Stop: 03/10/17 13:24 Last Admin: 03/10/17 09:27 Dose: 125 mls/hr - Exam General: Alert, Oriented Lungs: Normal Respiratory Effort Cardiovascular: Regular Rate (No dysrythmia on Telemetry) GI/Abdominal Exam: Soft, Tender (Mild tenderness in upper and mid abdomen but improved and no guarding) - Problem List Review Problem List Initiated/Reviewed/Updated: Yes - My Orders Last 24 Hours: My Active Orders 03/10/17 10:49 Transfer Patient (Change bed) [ADT] Routine Telemetry Monitoring [Cardiac Monitoring] [RC] .As Directed 03/11/17 Breakfast [place] Diet [DIET] Soft Diet [DIET] - Assessment Assessment:: GI bleed with acute anemia Clinically improving and stable VS - although BP in 90's systolic (stable) Hgb 9.4 Tolerating light diet - Plan Plan:: Discharge on Prilosec and Iron Follow up in Clinic in 1 week Anticipate Stress Test and Colonoscopy with repeat EGD in the future
[2017-03-11 09:19] VITALS: BP 93/47
== END 2017-03-11 09:39 | disposition home or self-care (01) | DRG 378 ==
LOC: FB.ICU 15:57 → FB.MS 03-10 10:31 → OBSVTOIN 03-10 10:31
PROVIDERS: ADMIT Family Medicine; ATTEND Family Medicine
PROC: 30233N1 Transfusion of Nonautologous Red Blood Cells into Peripheral Vein, Percutaneous Approach (ICD-10-PCS; principal; 2017-03-10)
PROC: 0DB68ZX Excision of Stomach, Via Natural or Artificial Opening Endoscopic, Diagnostic (ICD-10-PCS; 2017-03-10)
DX: K92.2 Gastrointestinal hemorrhage, unspecified (principal); D62 Acute posthemorrhagic anemia; E87.1 Hypo-osmolality and hyponatremia; R07.9 Chest pain, unspecified; I95.9 Hypotension, unspecified; G89.4 Chronic pain syndrome; H91.91 Unspecified hearing loss, right ear; K25.9 Gastric ulcer, unspecified as acute or chronic, without hemorrhage or perforation; Z88.1 Allergy status to other antibiotic agents; Z88.5 Allergy status to narcotic agent
CPT/HCPCS: 36415; 36430; 71010; 80048; 80053; 82550; 82553; 84484; 85018; 85025; 85379; 85610; 86850; 86900; 86901; 86920; 86922; 88305; 88342; 93005; 96360; 96361; A9270-GY; C9113; G0378; G0379; J2250; J2704; J7040; J7042; J7050; P9016

== ENCOUNTER 2021-04-29 14:02 | Emergency (ER) | payer BC, OTHER ==
[2021-04-29] MEDS ORDERED: Ondansetron 4 MG Tab.DIS PO ONE (14:03)
[2021-04-29] MEDS ORDERED: Sodium Chloride 0.9% 10 ML Syringe FLUSH PRN (14:49)
[2021-04-29] MEDS ORDERED: Ondansetron 4 MG/2 ML SDV IVPUSH STA (14:50)
[2021-04-29] MEDS ORDERED: Acetaminophen/HYDROcodone 325-5 MG Tab PO STA (14:50)
[2021-04-29] MEDS ORDERED: Sodium Chloride 0.9% 1,000 ML IV SCH (15:00)
[2021-04-29] MEDS ORDERED: Iopamidol 755 Mg/ML 75 ML Bottle IV ONE (17:26)
[2021-04-29 19:35] VITALS: BP 107/67; PULSE 68
== END 2021-04-29 19:15 | disposition home or self-care (01) ==
LOC: FB.ED 14:02
DX: U07.1 COVID-19 (principal); Z88.1 Allergy status to other antibiotic agents; Z88.5 Allergy status to narcotic agent
CPT/HCPCS: 36415; 71045; 71275; 80053; 83880; 84484; 85025; 85379; 96374; 99285; A9270; J2405; J7030; Q9967